=== PATIENT | female | born 1945 | race Caucasian/White ===

== ENCOUNTER 2024-07-16 08:42 | Outpatient (CLI) | payer BC | END 2024-07-16 08:43 | disposition home or self-care (01) | LOC: CSHULT 08:42 | PROVIDERS: ATTEND Internal Medicine Nephrology | DX: N18.30 Chronic kidney disease, stage 3 unspecified (principal); R31.9 Hematuria, unspecified; N13.30 Unspecified hydronephrosis; N26.1 Atrophy of kidney (terminal) | CPT/HCPCS: 76770 ==